=== PATIENT | female | born 1955 | race African-American/Black ===

== ENCOUNTER 2017-10-08 11:44 | Emergency (ER) | payer OTHER, MEDICAID ==
[~2017-10-08] VITALS: Ht 162.6 cm; Wt 82.0 kg
[2017-10-08 12:07] VITALS: BP 125/74
== END 2017-10-08 14:10 | disposition left against medical advice (07) ==
LOC: ER 13:06
DX: M25.531 Pain in right wrist (principal); W19.XXXA Unspecified fall, initial encounter; Y93.89 Activity, other specified; Y92.89 Other specified places as the place of occurrence of the external cause; Y99.8 Other external cause status
CPT/HCPCS: 73110; 99284